=== PATIENT | male | born 1970 | race Caucasian/White ===

== ENCOUNTER 2016-08-27 10:34 | Emergency (ER) | payer OTHER ==
[2016-08-27 10:47] VITALS: BP 145/95; PULSE 79; RESP 18; TEMP 97.5; O2SAT 145
--- NOTE | 2016-08-27 11:19 | C.PDOC ---
History Of Present Illness 46-year-old male, denies significant PMHx, presents to the emergency department with complaints of non-traumatic right-side neck and shoulder pain that started two days ago. Pain is intermittent in nature and non-radiating. Denies shortness of breath, chest pain, dizziness, back pain or any other associated symptoms. No other complaints at this time, pt belives pain to be from "lifting A/c" Time Seen by Provider: 08/27/16 10:48 Chief Complaint (Nursing): Back Pain History Per: Patient History/Exam Limitations: no limitations Onset/Duration Of Symptoms: Days Past Medical History Reviewed: Historical Data, Nursing Documentation, Vital Signs Vital Signs: Last Vital Signs Temp 97.5 F L 08/27/16 10:43 Pulse 79 08/27/16 10:43 Resp 18 08/27/16 10:43 BP 145/95 H 08/27/16 10:43 Pulse Ox 145 H 08/27/16 11:35 Family History: States: Diabetes - Social History Hx Tobacco Use: Yes (quit 4 years ago) Hx Alcohol Use: No Hx Substance Use: No - Immunization History Hx Tetanus Toxoid Vaccination: No Hx Influenza Vaccination: No Hx Pneumococcal Vaccination: No Review Of Systems Except As Marked, All Systems Reviewed And Found Negative. Constitutional: Negative for: Fever, Chills Cardiovascular: Negative for: Chest Pain, Palpitations Respiratory: Negative for: Shortness of Breath Gastrointestinal: Negative for: Nausea, Vomiting Musculoskeletal: Positive for: Shoulder Pain. Negative for: Back Pain Skin: Negative for: Rash Neurological: Negative for: Weakness, Numbness Physical Exam - Physical Exam Appears: Non-toxic, No Acute Distress Skin: Warm, Dry, No Rash Head: Atraumatic, Normacephalic Eye(s): bilateral: Normal Inspection, PERRL Oral Mucosa: Moist Lips: Normal Appearing Neck: Normal ROM, Paracervical Tenderness (Right. No pain w/ range of motion of right shoulder. ) Cardiovascular: Rhythm Regular, No Murmur Respiratory: Normal Breath Sounds, No Accessory Muscle Use ED Course And Treatment O2 Sat by Pulse Oximetry: 145 Medical Decision Making Medical Decision Making: pt with neck pain, ?related to lifting a/c. exam consistent with msk pain. pt given toradol, pt states pain resolved, requesting to be d/c Disposition - Disposition Referrals: [facility] [Outside] [facility] [Outside] [facility] Disposition: HOME/ ROUTINE Disposition Time: 12:00 Condition: STABLE Additional Instructions: please follow up with your doctor/clinic. return to er with worsening symptoms or concerns. Prescriptions: Cyclobenzaprine [Cyclobenzaprine HCl] 10 mg PO TID PRN #21 tab PRN Reason: Muscle Spasm Naproxen 500 mg PO BID PRN #14 tab PRN Reason: Pain, Mild (1-3) Instructions: Cervical Sprain (ED), Muscle Spasm (ED) - Clinical Impression Clinical Impression: Neck pain - Scribe Statement The provider has reviewed the documentation as recorded by the Sulyibluis alberto Gutiérrez All medical record entries made by the Sulyibluis alberto were at my direction and personally dictated by me. I have reviewed the chart and agree that the record accurately reflects my personal performance of the history, physical exam, medical decision making, and the department course for this patient. I have also personally directed, reviewed, and agree with the discharge instructions and disposition.
== END 2016-08-27 11:58 | disposition home or self-care (01) ==
LOC: C.ER 10:34
DX: M54.2 Cervicalgia (principal)
CPT/HCPCS: 96372; 99283; J1885

== ENCOUNTER 2016-08-29 16:54 | Emergency (ER) | payer OTHER ==
[2016-08-29 17:05] VITALS: TEMP 98.4
[2016-08-29 17:32] VITALS: RESP 18
[2016-08-29 18:08] LABS: BASO # 0.1 K/uL (0.0-0.2); BASO % 1.1 % (0.0-2.0); EOS # 0.2 K/uL (0.0-0.7); EOS % 1.5 % (0.0-4.0); HEMATOCRIT 44.7 % (35.0-51.0); LYMPH # 3.9 K/uL (1.0-4.3); MEAN CELL VOLUME 82.8 fL (80.0-94.0); MEAN CORPUSCULAR HEMOGLOBIN 28.4 pg (27.0-31.0); MEAN CORPUSCULAR HGB CONC 34.3 g/dL (33.0-37.0); MEAN PLATELET VOLUME 8.3 fL (7.2-11.7); MONO # 0.6 K/uL (0.0-0.8); RED CELL DISTRIBUTION WIDTH 14.1 % (11.5-14.5); WHITE BLOOD COUNT 12.1 K/uL (4.8-10.8)
--- NOTE | 2016-08-29 18:08 | C.PDOC ---
History Of Present Illness 46-year-old male, presents to the emergency department with complaints of fall. Patient states he was standing on stepladder, slipped, and landed on the top of ladder, injuring his lower abdominal area. He notes pain with standing up. Denies symptoms, dizziness, head injuries or any other associated symptoms. Of note, patient seen in ED 2 days ago for shoulder pain, still present but not worse - HPI Time Seen by Provider: 08/29/16 17:21 Chief Complaint (Nursing): Trauma History/Exam Limitations: no limitations Severity: Mild Past Medical History Vital Signs: Last Vital Signs Temp 98.4 F 08/29/16 17:04 Pulse 78 08/29/16 17:26 Resp 18 08/29/16 17:26 BP 157/110 H 08/29/16 17:26 Pulse Ox 98 08/29/16 18:09 - Medical History PMH: HTN Family History: States: Diabetes - Social History Hx Tobacco Use: Yes (quit 4 years ago) Hx Alcohol Use: No Hx Substance Use: No Review Of Systems Except As Marked, All Systems Reviewed And Found Negative. Cardiovascular: Negative for: Chest Pain Respiratory: Negative for: Shortness of Breath Gastrointestinal: Positive for: Abdominal Pain. Negative for: Vomiting Neurological: Negative for: Weakness, Numbness Physical Exam - Physical Exam Appears: Non-toxic, No Acute Distress Skin: Warm, Dry Head: Atraumatic Eye(s): bilateral: Normal Inspection Neck: Normal ROM, No Midline Cervical Tenderness, No Paracervical Tenderness, Supple Chest: Symmetrical, No Tenderness Cardiovascular: Rhythm Regular, No Murmur Respiratory: Normal Breath Sounds, No Rales, No Rhonchi Gastrointestinal/Abdominal: Soft, Tenderness (minimal tenderness to lower abdomen.) Extremity: Normal ROM Neurological/Psych: Oriented x3, Normal Speech, Normal Cognition ED Course And Treatment - Laboratory Results Result Diagrams: 08/29/16 17:58 08/29/16 17:58 O2 Sat by Pulse Oximetry: 98 Medical Decision Making Medical Decision Making: Pt stable in the Ed however in view of the mechanism of the injury will do CT to r/o intra-abdominal injury Disposition - Disposition Disposition: HOME/ ROUTINE Disposition Time: 18:53 Condition: GOOD - Clinical Impression Clinical Impression: Abdominal trauma - Scribe Statement The provider has reviewed the documentation as recorded by the Onelia Gutiérrez All medical record entries made by the Scribe were at my direction and personally dictated by me. I have reviewed the chart and agree that the record accurately reflects my personal performance of the history, physical exam, medical decision making, and the department course for this patient. I have also personally directed, reviewed, and agree with the discharge instructions and disposition. Physician Patient Turnover Patient Signed Over To: Dominick Lim Handoff Comments: Pending CT - pt not disbetic but glu 180
[2016-08-29 18:12] LABS: CHLORIDE 100 mmol/L (98-107); POTASSIUM 3.9 mmol/L (3.6-5.2); SODIUM 138 mmol/L (132-148)
[2016-08-29 18:15] LABS: GFR AFRICAN-AMERICAN > 60
[2016-08-29 18:16] LABS: BLOOD UREA NITROGEN 10 mg/dL (9-20); CALCIUM 8.5 mg/dl (8.6-10.4); CARBON DIOXIDE 28 mmol/L (22-30); GLUCOSE,RANDOM 189 mg/dL (75-110)
[2016-08-29] MEDS ORDERED: Iohexol 350mg/ml 100 ML ONE (18:33)
--- NOTE | 2016-08-29 20:05 | CT ---
EXAM: CT Abdomen and Pelvis With Intravenous Contrast CLINICAL HISTORY: 46 years old, male; Pain and injury or trauma; Fall; Initial encounter; Blunt; Lower; Abdominal pain; Generalized; Additional info: Blunt trauma to lower abd TECHNIQUE: Axial computed tomography images of the abdomen and pelvis with intravenous contrast. This CT exam was performed using one or more of the following dose reduction techniques: automated exposure control, adjustment of the mA and/or kV according to patient size, and/or use of iterative reconstruction technique. Coronal and sagittal reformatted images were created and reviewed. CONTRAST: 100 mL of OMNI 350 administered intravenously. EXAM DATE/TIME: Exam ordered 08/29/2016 5:35 PM COMPARISON: No relevant prior studies available. FINDINGS: Lower thorax: There is a small hiatal hernia. ABDOMEN: Liver: The liver measures 17 cm in craniocaudal span. The liver is low in density Gallbladder and bile ducts: Gallstones are noted in the gallbladder neck. No ductal dilation. Pancreas: Unremarkable. No mass. No ductal dilation. Spleen: Unremarkable. No splenomegaly. Adrenals: Unremarkable. No mass. Kidneys and ureters: 2 nonobstructing calcifications are noted in the right kidney. The midportion the kidney there is a 6.5 mm calcification. In the inferior aspect of the kidney there is a 6 mm calcification. There are several low density lesions noted within the kidney. The largest is in the upper pole measuring 1.4 cm in greatest diameter with a density measurement of 19 H. On the left there are 2 nonobstructing calcifications noted. Both are in the upper pole and measure 4 mm and 2 mm respectively in maximum diameter. Numerous low density lesions are noted in the left kidney with the largest in the upper pole measuring 2.5 cm with a density measurement of 18 H. Stomach and bowel: Unremarkable. No obstruction. No mucosal thickening. Appendix: No findings to suggest acute appendicitis. PELVIS: Bladder: Unremarkable. No mass. Reproductive: The prostate measures 3.4 x 4.7 x 3.9 cm ABDOMEN and PELVIS: Intraperitoneal space: Unremarkable. No free air. No significant fluid collection. Bones/joints: No acute fracture. No dislocation. Soft tissues: There is a small fat containing umbilical hernia. Vasculature: Unremarkable. No abdominal aortic aneurysm. Lymph nodes: Unremarkable. No enlarged lymph nodes. IMPRESSION: 1. Bilateral nonobstructing renal calcifications. 2. Bilateral low-density renal lesions. The largest are cysts. Not all are fully characterize due to their small size. Recommend CT or MRI follow-up in 6 months. 3. Small hiatal hernia. 4. Small umbilical hernia containing fat 5. Gallstones 6. Mild hepatic steatosis
[2016-08-29 20:33] VITALS: BP 155/102; PULSE 81; O2SAT 99
== END 2016-08-29 21:07 | disposition home or self-care (01) ==
LOC: C.ER 16:54
DX: S39.91XA Unspecified injury of abdomen, initial encounter (principal); W11.XXXA Fall on and from ladder, initial encounter; E11.9 Type 2 diabetes mellitus without complications
CPT/HCPCS: 74177; 80048; 83036; 85025; 99285; Q9967

== ENCOUNTER 2017-06-16 09:24 | Emergency (ER) | payer OTHER ==
[2017-06-16 09:25] VITALS: BMI 36.1
[2017-06-16 09:35] VITALS: O2SAT 100
--- NOTE | 2017-06-16 11:41 | C.PDOC ---
History Of Present Illness 47 year old male presents to the ED c/o neck pain for the past 3 days. Patient states he might have slept wrong which cause him the pain, he is not taking nay pain medication at this time. Patient denies injury, fall, trauma, weakness, CP , SOB. Time Seen by Provider: 06/16/17 09:55 Chief Complaint (Nursing): Back Pain History Per: Patient History/Exam Limitations: no limitations Onset/Duration Of Symptoms: Days Current Symptoms Are (Timing): Still Present Quality Of Discomfort: "Pain" Associated Symptoms: None Recent travel outside of the [place]: No Additional History Per: Patient Past Medical History Reviewed: Historical Data, Nursing Documentation, Vital Signs Vital Signs: Last Vital Signs Temp 97.7 F 06/16/17 09:34 Pulse 59 L 06/16/17 09:34 Resp 20 06/16/17 09:34 BP 123/83 06/16/17 09:34 Pulse Ox 100 06/16/17 11:48 - Medical History PMH: HTN Surgical History: No Surg Hx Family History: States: Diabetes - Social History Hx Tobacco Use: Yes (quit 4 years ago) Hx Alcohol Use: No Hx Substance Use: No - Immunization History Hx Tetanus Toxoid Vaccination: No Hx Influenza Vaccination: No Hx Pneumococcal Vaccination: No Review Of Systems Constitutional: Negative for: Fever, Chills Eyes: Negative for: Vision Change Cardiovascular: Negative for: Chest Pain Respiratory: Negative for: Cough, Shortness of Breath Gastrointestinal: Negative for: Nausea, Vomiting, Abdominal Pain Musculoskeletal: Positive for: Neck Pain Skin: Negative for: Rash Neurological: Negative for: Weakness, Numbness, Headache Physical Exam - Physical Exam Appears: Non-toxic, No Acute Distress Skin: Normal Color, Warm, Dry Head: Atraumatic, Normacephalic Eye(s): bilateral: Normal Inspection Nose: No Discharge, No Deformity Oral Mucosa: Moist Neck: Normal ROM, No Midline Cervical Tenderness, Paracervical Tenderness, Supple Neurological/Psych: Oriented x3, Normal Speech, Normal Cognition Gait: Steady ED Course And Treatment O2 Sat by Pulse Oximetry: 100 (On RA) Pulse Ox Interpretation: Normal - Other Rad Cervical Spine X-Ray X-Ray: Interpreted by Me, Viewed By Me Interpretation: Positive changes, calcification, no fracture or dislocation. Medical Decision Making Medical Decision Making: Assessment: Neck pain Plan: * Motrin 600 mg PO * Ultram 50 mg PO * Cervical Spine X-Ray Patient was advised to follow up with Dr. Meléndez in 2 days or return to the ED for evaluation of symptoms worsen. Disposition Counseled Patient/Family Regarding: Studies Performed, Need For Followup, Rx Given - Disposition Referrals: Regla Meléndez MD [Staff Provider] - Disposition Time: 11:39 Condition: STABLE Additional Instructions: follow up with your doctor in 2 days call to make an appointment take medications as prescribed return to ER if symptoms worsens or progress preliminary reading of your xray demonstrates no broken bones the xray will be read officially by radiologist. Prescriptions: Acetaminophen/Codeine [Tylenol/Codeine 300 MG/30 MG] 1 tab PO Q6H PRN #12 tab PRN Reason: Pain, Severe (8-10) Aspirin [Aspirin EC] 325 mg PO DAILY #30 ect Cholecalciferol [Vitamin D] 5,000 iu PO QWK #10 tab Cyclobenzaprine [Cyclobenzaprine HCl] 10 mg PO TID PRN #12 tab PRN Reason: Muscle Spasm Lisinopril [Prinivil] 10 mg PO DAILY #30 tablet Naproxen [Naprosyn] 500 mg PO BID PRN #16 tab PRN Reason: Pain, Moderate (4-7) Instructions: Neck Pain Forms: [facility] (Yakut), General Discharge Instructions - Clinical Impression Clinical Impression: Neck pain - Scribe Statement The provider has reviewed the documentation as recorded by the Scribe Michael Monzon All medical record entries made by the Scribe were at my direction and personally dictated by me. I have reviewed the chart and agree that the record accurately reflects my personal performance of the history, physical exam, medical decision making, and the department course for this patient. I have also personally directed, reviewed, and agree with the discharge instructions and disposition.
[2017-06-16 11:57] VITALS: BP 134/79; PULSE 89; RESP 16; TEMP 98.3
--- NOTE | 2017-06-16 14:44 | RAD ---
Cervical spine four views History: Injury. Comparison: None available. Findings: C7 vertebral body only partially imaged. Mild loss of height of the C5 vertebral body at its superior endplate. Prominent anterior osteophytosis at the C4-5 level with milder anterior osteophytosis at the C5-6 and C6-7 level. Apparent discontinuity of the anterior osteophyte of the C4-5 level. Clinical correlation. No gross prevertebral soft tissue swelling. Posterior disc osteophyte complex at the C6-7 level. Multilevel uncovertebral joint and facet hypertrophy. Dens appears grossly preserved. Impression: C7 vertebral body only partially imaged. Mild loss of height of the C5 vertebral body at its superior endplate. Prominent anterior osteophytosis at the C4-5 level with milder anterior osteophytosis at the C5-6 and C6-7 level. Apparent discontinuity of the anterior osteophyte of the C4-5 level. Clinical correlation. No gross prevertebral soft tissue swelling. Posterior disc osteophyte complex at the C6-7 level. Multilevel uncovertebral joint and facet hypertrophy. If pain persists, consider further evaluation with MRI.
== END 2017-06-16 11:57 | disposition home or self-care (01) ==
LOC: C.ER 09:24
DX: M54.2 Cervicalgia (principal); I10 Essential (primary) hypertension; Z87.891 Personal history of nicotine dependence

== ENCOUNTER 2018-06-25 19:22 | Emergency (ER) | payer SELFPAY ==
[2018-06-25 19:23] VITALS: BMI 33.7
[2018-06-25 19:31] VITALS: RESP 20; O2SAT 98
--- NOTE | 2018-06-25 20:33 | C.PDOC ---
History Of Present Illness 48 year old male presents to ED with complaint of left knee pain s/p fall. 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 Patient denies numbness and weakness. Time Seen by Provider: 06/25/18 19:33 Chief Complaint (Nursing): Lower Extremity Problem/Injury History Per: Patient History/Exam Limitations: no limitations Onset/Duration Of Symptoms: Hrs Current Symptoms Are (Timing): Still Present - Knee Description Of Injury: Fell Past Medical History Reviewed: Historical Data, Nursing Documentation, Vital Signs Vital Signs: Last Vital Signs Temp 98.3 F 06/25/18 19:29 Pulse 93 H 06/25/18 19:29 Resp 20 06/25/18 19:29 BP 155/102 H 06/25/18 19:29 Pulse Ox 98 06/25/18 19:29 - Medical History PMH: HTN Surgical History: No Surg Hx Family History: States: Diabetes - Social History Hx Tobacco Use: Yes (quit 4 years ago) Hx Alcohol Use: No Hx Substance Use: No - Immunization History Hx Tetanus Toxoid Vaccination: No Hx Influenza Vaccination: No Hx Pneumococcal Vaccination: No Review Of Systems Constitutional: Negative for: Fever, Chills, Weakness Musculoskeletal: Positive for: Leg Pain (left knee) Neurological: Negative for: Weakness, Numbness, Dizziness Physical Exam - Physical Exam Appears: Well, Non-toxic, No Acute Distress Skin: Normal Color, Warm, Dry Head: Atraumatic, Normacephalic Eye(s): bilateral: Normal Inspection Neck: Normal ROM, Supple Chest: Symmetrical, No Deformity Respiratory: No Accessory Muscle Use Extremity: Normal ROM (causes pain to left knee), Tenderness (mild tenderness to palpation on the left knee), No Deformity, Swelling (minimal swelling to the anterior aspect of the left knee), No Other (erythema, ecchymosis) Extremity: Bilateral: Normal Color And Temperature Pulses: Left Dorsalis Pedis: Absent, Right Dorsalis Pedis: Absent Neurological/Psych: Oriented x3, Normal Speech, Normal Cognition Gait: Steady ED Course And Treatment O2 Sat by Pulse Oximetry: 98 (in RA) Progress Note: Left knee X-ray ordered for patient. Patient given Motrin PO. Left knee X-ray: No fracture. No dislocation. Positive DJD. Patient placed in CARROL bandage. Advised to take NSAIDs and to f/u with PMD. Re-evaluation. Patient feels better. Discussed results and plan with patient who expresses understanding. All questions answered and there is agreement with the plan to discharge home with instructions. Patient stable for discharge. Return if symptoms persist or worsen. Disposition Counseled Patient/Family Regarding: Diagnosis, Need For Followup, Rx Given - Disposition Referrals: [facility] [Outside] Disposition: HOME/ ROUTINE Disposition Time: 20:32 Condition: STABLE Additional Instructions: Please follow up with PMD Take david jean motrin Return to ER if worse Instructions: Knee Pain (DC) Forms: [employer] (Belarusian) - Clinical Impression Clinical Impression: Left knee pain, Contusion of left knee - PA / BARKEEPER / Resident Statement MD/DO has reviewed & agrees with the documentation as recorded. (Brooke Perez) - Scribe Statement The provider has reviewed the documentation as recorded by the Scribe (Brooke Perez) All medical record entries made by the Scribe were at my direction and personally dictated by me. I have reviewed the chart and agree that the record accurately reflects my personal performance of the history, physical exam, medical decision making, and the department course for this patient. I have also personally directed, reviewed, and agree with the discharge instructions and disposition.
[2018-06-25 20:34] VITALS: BP 133/89; PULSE 84; TEMP 97.9
--- NOTE | 2018-06-26 11:36 | RAD ---
Date of service: 06/25/2018 PROCEDURE: Left Knee Radiographs. HISTORY: Pain. COMPARISON: None. FINDINGS: BONES: Normal. No fracture. JOINTS: Medial and patellofemoral osteoarthritis. No articular erosion. JOINT EFFUSION: None. OTHER FINDINGS: None. IMPRESSION: Medial and patellofemoral osteoarthritis.
== END 2018-06-25 20:41 | disposition home or self-care (01) ==
LOC: C.ER 19:22
DX: S80.02XA Contusion of left knee, initial encounter (principal); W18.30XA Fall on same level, unspecified, initial encounter; M25.562 Pain in left knee

== ENCOUNTER 2018-06-29 10:23 | Emergency (ER) | payer SELFPAY ==
[2018-06-29 10:23] VITALS: BMI 33.7
[2018-06-29 10:52] VITALS: O2SAT 99
--- NOTE | 2018-06-29 11:53 | C.PDOC ---
History Of Present Illness 48 year old male presents to ED with complaint of left knee pain. Patient was last seen in [facility] ED on 06/25/18 after he fell and hit his knee. Patient's knee x-ray was negative. Patient showed signs of osteoarthritis. He was discharged and referred to the clinic. He states that the pain is not better and did not know that he had to follow up at the clinic. Patient denies any new numbness or weakness. Time Seen by Provider: 06/29/18 11:38 Chief Complaint (Nursing): Lower Extremity Problem/Injury Past Medical History Vital Signs: Last Vital Signs Temp 98.2 F 06/29/18 10:49 Pulse 77 06/29/18 10:49 Resp 18 06/29/18 10:49 BP 138/86 06/29/18 10:49 Pulse Ox 99 06/29/18 10:49 - Medical History PMH: HTN Family History: States: Diabetes - Social History Hx Tobacco Use: Yes (quit 4 years ago) Hx Alcohol Use: Yes Hx Substance Use: No - Immunization History Hx Tetanus Toxoid Vaccination: No Hx Influenza Vaccination: No Hx Pneumococcal Vaccination: No Review Of Systems Constitutional: Negative for: Fever, Chills, Weakness Cardiovascular: Negative for: Chest Pain Gastrointestinal: Negative for: Abdominal Pain Musculoskeletal: Positive for: Leg Pain (left knee pain) Neurological: Negative for: Weakness, Numbness, Dizziness Physical Exam - Physical Exam Appears: Well, Non-toxic, No Acute Distress Skin: Normal Color, Warm Head: Atraumatic, Normacephalic Neck: Normal ROM, Supple Chest: Symmetrical, No Deformity Cardiovascular: Rhythm Regular, No Murmur Respiratory: No Accessory Muscle Use Extremity: Tenderness (mild, diffuse tenderness to the left knee, pain with flexon), No Swelling (to the left knee), No Other (erythema to the left knee) Neurological/Psych: Oriented x3, Normal Speech, Normal Cognition Gait: Steady ED Course And Treatment O2 Sat by Pulse Oximetry: 99 (in RA) Progress Note: Knee brace applied to the left knee. Patient referred back to clinic. Re-evaluation. Patient feels better. Discussed plan with patient who expresses understanding. All questions answered and there is agreement with the plan to discharge home with instructions. Patient stable for discharge. Return if symptoms persist or worsen. Disposition - Disposition Referrals: [facility] [Outside] Disposition: HOME/ ROUTINE Disposition Time: 11:50 Condition: GOOD Additional Instructions: Follow up in Clinic within 1-2 days. Return to ED if feel worse. Prescriptions: Ibuprofen [Motrin Tab] 600 mg PO Q8 #30 tab Instructions: Knee Pain Forms: [facility] (Dominican) - Clinical Impression Clinical Impression: Left knee pain - PA / CUSTOM [employer]INE [employer]AB[employer]ICATOR / Resident Statement MD/DO has reviewed & agrees with the documentation as recorded. (Brooke Perez) - Scribe Statement The provider has reviewed the documentation as recorded by the Scribe (Brooke Perez) All medical record entries made by the Scribe were at my direction and personally dictated by me. I have reviewed the chart and agree that the record accurately reflects my personal performance of the history, physical exam, medical decision making, and the department course for this patient. I have also personally directed, reviewed, and agree with the discharge instructions and disposition.
[2018-06-29 12:42] VITALS: BP 147/98; PULSE 85; RESP 20; TEMP 99
== END 2018-06-29 12:55 | disposition home or self-care (01) ==
LOC: C.ER 10:23
DX: M25.562 Pain in left knee (principal)